=== PATIENT | female | born 1970 | race Caucasian/White ===

== ENCOUNTER 2021-01-05 15:33 | Outpatient (CLI) | payer OTHER, SELFPAY ==
--- NOTE | ~2021-01-05 | MM_ITS ---
EXAMINATION: MM screening emmanuel BI w alana HISTORY: Screening mammogram TECHNIQUE: Craniocaudal and mediolateral oblique 3-D tomosynthesis images were obtained and synthetic 2-D images were generated. Bilateral rotated lateral cc views. CAD analysis was submitted and interp reted. COMPARISON: 11/23/2018, 06/23/2017, 08/06/2011 bilateral digital screening mammogram examinations BREAST PARENCHYMAL COMPOSITION: The breasts are heterogeneously dense, which may obscure small masses . FINDINGS: There is no evidence of suspicious mass, calcification, or architectural distortion to sugg est malignancy in either breast. There has been no suspicious interval change. IMPRESSION: 1. No mammographic evidence of malignancy. 2. Recommend routine screening mammography in one year. BI-RADS Category 1: Negative Reviewed, dictated and finalized at location A.
== END 2021-01-05 15:34 | disposition home or self-care (01) ==
LOC: ANHIMG 15:38
PROVIDERS: PCP Internal Medicine; Visit Provider Registered Nurse
DX: Z12.31 Encounter for screening mammogram for malignant neoplasm of breast (principal)
CPT/HCPCS: 77063; 77067

== ENCOUNTER 2024-06-14 08:23 | Outpatient (CLI) | payer OTHER, SELFPAY ==
--- NOTE | ~2024-06-14 | MM_ITS ---
EXAMINATION: MM screening emmanuel BI w alana HISTORY: Screening mammogram TECHNIQUE: Craniocaudal and mediolateral oblique 3-D tomosynthesis images were obtained and synthetic 2-D images were generated. CAD analysis was submitted and interpreted. COMPARISON: 01/05/2021, 11/23/2018 BREAST PARENCHYMAL COMPOSITION:Dense: The breasts are heterogeneously dense, which may obscure small masses. FINDINGS: No suspicious mass, calcification, or architectural distortion are identified in either lashonda ast to suggest malignancy. There has been no suspicious interval change. IMPRESSION: No mammographic evidence of malignancy. Recommend routine screening mammography in one year. BI-RADS Category 1: Negative Reviewed, dictated and finalized at location .
== END 2024-06-14 08:24 | disposition home or self-care (01) ==
PROVIDERS: PCP Internal Medicine; Visit Provider Internal Medicine
DX: Z12.31 Encounter for screening mammogram for malignant neoplasm of breast (principal)
CPT/HCPCS: 77063; 77067

== ENCOUNTER 2024-11-24 17:37 | Emergency (ER) | payer OTHER, SELFPAY ==
--- NOTE | ~2024-11-24 | XR_ITS ---
EXAMINATION: XR wrist RT min 3V DATE: 11/24/2024 18:03 INDICATION: Right wrist pain. Fall. TECHNIQUE: 4 views of right wrist were obtained. COMPARISON: None. FINDINGS: Alignment is normal. No fracture. There is mild osteoarthritis of triscaphe joint and first carpometacarpal joint. IMPRESSION: 1. Mild polyarticular osteoarthritis. Reviewed, dictated and finalized at location A. [employer]
[2024-11-24 17:52] VITALS: BP 148/103; PULSE 105; RESP 16; TEMP 37.2; O2SAT 99
--- NOTE | 2024-11-24 18:07 | ED_ITS ---
HPI - Extremity Injury (Lower) General Chief Complaint: Extremity Injury, Lower Stated Complaint: right wrist/hand injury Time Seen by Provider: 11/24/24 18:07 Source: patient Mode of arrival: ambulatory Limitations: no limitations History of Present Illness HPI Narrative: 54-year-old female presents with complaint of pain and swelling to right wrist. Prior to arrival patient was walking her dog and fell. Landing on right wrist. Pain with movement. No deformity. CMS intact. All systems reviewed and negative except as noted above. Related Data Allergies Allergy/AdvReac Type Severity Reaction Status Date / Time No Known Allergies Allergy Unverified 05/28/17 09:31 Review of Systems Review of Systems: CONSTITUTIONAL: Denies fever, chills, or sweats. EYES: Denies visual changes, redness, or discharge. ENT: Denies rhinorrhea, congestion, sore throat, or otalgia. CARDIOVASCULAR: Denies chest pain, palpitations, or edema. RESPIRATORY: Denies cough or dyspnea. GASTROINTESTINAL: Denies abdominal pain, nausea, vomiting, or diarrhea. GENITOURINARY: Denies dysuria or hematuria. SKIN: Denies rash or itching. MUSCULOSKELETAL: Denies back pain, joint pain, or myalgia. Reports right wrist pain and swelling. NEUROLOGIC: Denies headache, numbness, or weakness. PSYCHIATRIC: Denies anxiety or depression. All other systems reviewed are negative, except as documented in HPI. [facility] Family History Family History (Updated 05/08/18 @ 09:53 by DOCTOR UNKNOWN) Other Family history of coronary artery disease Social History Social History Smoking status: Never smoker Alcohol intake: never Comments At time of signature, agree with nursing past medical, surgical, social and family history. There is no relevant family history pertinent to the presenting complaint. Exam Narrative: GENERAL: This is a well-nourished, well-developed patient, in no apparent distress. HEAD: normocephalic, atraumatic. EYES: PERRL. Sclera clear/white. Vision is grossly intact. EARS: External ears normal NOSE: External nose normal NECK: Neck supple, non-tender without lymphadenopathy, masses or thyromegaly. CARDIOVASCULAR: Regular rate and rhythm without murmurs, gallops, or rubs. RESPIRATORY: Clear to auscultation. Breath sounds equal bilaterally. No wheezes, rales, or rhonchi. SKIN: warm, Dry, intact with no suspicious lesions or rash, good texture and turgor. NEURO: awake, alert, and oriented to person, place and time. There were no obvious focal neurologic abnormalities. EXTREMITIES: tenderness to distal aspect ulnar and radius with swelling to distal radius. radial pulse intact. decreased ROM due to pain . no deformity Course Course Level of Care: Express Care Visit Vital Signs Vital signs: Vital Signs Temperature 37.2 C 11/24/24 17:52 Pulse Rate 105 H 11/24/24 17:52 Respiratory Rate 16 11/24/24 17:52 Blood Pressure 148/103 H 11/24/24 17:52 Pulse Oximetry 99 11/24/24 17:52 Oxygen Delivery Room Air 11/24/24 17:52 Temperature 37.2 C 11/24/24 17:52 Pulse Rate 105 H 11/24/24 17:52 Respiratory Rate 16 11/24/24 17:52 Blood Pressure 148/103 H 11/24/24 17:52 Pulse Oximetry 99 11/24/24 17:52 Oxygen Delivery Room Air 11/24/24 17:52 Reviewed MDM - Extremity Injury (Lower) MDM Narrative Medical decision making narrative: x-ray right breast negative for fracture. Placed in David wrap for wrist sprain. Recommend follow-up primary care physician if pain not improving. Please be advised this is a medical document. It is intended for [id number] communication. It is written in medical language and may contain unfamiliar abbreviations or verbiage. Medical documents are intended to carry relevant information, facts as evident, and the clinical opinion of the practitioner at t he time of the encounter. This report may have been done utilizing a voice recognition system. Attempts have been made to correct errors. However, there may be uncorrected grammatical, spelling, and recognition errors present. The file time of this note does not necessarily represent the time of service. Imaging Data My impression: agree with radiologist Radiologist's impression: EXAMINATION: XR wrist RT min 3V DATE: 11/24/2024 18:03 INDICATION: Right wrist pain. Fall. TECHNIQUE: 4 views of right wrist were obtained. COMPARISON: None. FINDINGS: Alignment is normal. No fracture. There is mild osteoarthritis of triscaphe joint and first carpometacarpal joint. IMPRESSION: 1. Mild polyarticular osteoarthritis. Discharge Plan Discharge Clinical Impression: Right wrist sprain Qualifiers: Encounter type: initial encounter Qualified Code(s): S63.501A - Unspecified sprain of right wrist, initial encounter Patient Disposition: Home, Self-Care Condition: Stable Instructions: Wrist Sprain (ED) Additional Instructions: The x-ray of your right wrist was negative for fracture. Take tylenol every 6 to 8 hours as needed for pain. Elevate when at rest. Apply ice as needed for pain. Follow up with your doctor if pain and swelling not improving. Patient Language: Irish Follow-up/Referrals: Darlyn,Josh Priest MD [Primary Care Provider] - Time of Disposition: 18:21
== END 2024-11-24 18:25 | disposition home or self-care (01) ==
PROVIDERS: Emergency Provider Nurse Practitioner Family; PCP Internal Medicine
DX: S63.501A Unspecified sprain of right wrist, initial encounter (principal); W19.XXXA Unspecified fall, initial encounter; Y93.K1 Activity, walking an animal; I10 Essential (primary) hypertension
CPT/HCPCS: 73110; 99203; G0463

== ENCOUNTER 2024-12-30 14:55 | Emergency (ER) | payer OTHER, SELFPAY ==
--- NOTE | ~2024-12-30 | XR_ITS ---
EXAM: XR foot LT min 3V DATE: 12/30/2024 15:10 HISTORY: pain in the MTP- 1,2,3 fall . COMPARISON: 02/13/2013. FINDINGS: Normal mineralization. Mildly distracted and rotated fracture at the medial corner of the proximal left second phalanx. No lytic or blastic lesion. Mild degenerative change at the first MTP j oint. Achilles enthesopathy.. No erosion or periosteal change. Soft tissue swelling over the fracture site. IMPRESSION: Mildly distracted and rotated fracture of the medial corner of the proximal left second p halanx. Reviewed, dictated and finalized at location K. IMPRESSION: Mildly distracted and rotated fracture of the medial corner of the proximal left second phalanx.
[2024-12-30 15:05] VITALS: BP 149/104; PULSE 94; RESP 20; TEMP 36.3; O2SAT 100
--- NOTE | 2024-12-30 15:05 | ED.LOWEXIN ---
HPI - Extremity Injury (Lower) General Chief Complaint: Extremity Injury, Lower Stated Complaint: Left Foot Pain Time Seen by Provider: 12/30/24 15:10 Source: patient, RN notes reviewed and old records reviewed Mode of arrival: ambulatory Limitations: no limitations History of Present Illness HPI Narrative: [age] year [facility] foot pain. Pain is in the 1st 2nd and 3rd MTP joints. Worse in the 2nd. Mild swelling noted. Patient reports that she did have bruising which has greatly improved. Original injury was the 14 of December. Has been taking Advil and icing. Related Data Home Medications ?Medication ?Instructions ?Recorded ?Confirmed ?Last Taken ?Type atomoxetine 80 mg capsule mg PO 12/30/24 Unknown History hydrochlorothiazide 25 mg tablet mg 12/30/24 Unknown History venlafaxine 75 mg capsule,extended mg PO 12/30/24 Unknown History release 24 hr Allergies Allergy/AdvReac Type Severity Reaction Status Date / Time No Known Allergies Allergy Verified 12/30/24 15:01 Review of Systems Review of Systems: All systems reviewed & are unremarkable except as noted in HPI and below Constitutional: Constitutional: Reports no additional constitutional complaints ENT: Reports system reviewed and no additional complaints, except as documented Cardiovascular: Cardiovascular: Reports no additional cardiovascular complaints, Denies chest pain and Denies dyspnea Respiratory: Respiratory: Reports no additional respiratory complaints, Denies chest congestion, Denies cough and Denies dyspnea Musculoskeletal: Musculoskeletal: Reports as per HPI Integumentary/Breasts: Skin/Breast: Reports system reviewed and no additional complaints, except as docu [facility] Family History Family History Other Family history of coronary artery disease Social History Social History Smoking status: Never smoker Alcohol intake: never Comments At the time of my signature, I reviewed and agree with the nursing past medical, surgical, social, and family history. There is no relevant family history pertinent to the patient complaint. Exam Const: General: cooperative, healthy appearing, comfortable, no acute distress, well developed, alert and well nourished Nutritional Appearance: well nourished Orientation/consciousness: patient oriented x3 Limitations: no limitations HENMT: Head: normal to inspection Eyes: General: appearance normal, both eyes and all related structures Alignment and Position: alignment normal Neck: Neck: normal visual inspection, full ROM, no lymphadenopathy and no meningeal signs Chest: Chest palpation & inspection: normal inspection of the chest Resp: Effort & Inspection: normal respiratory effort and able to speak in complete sentences Cardio: Rate: regular rate Skin: General skin exam: normal color and no rashes or lesions noted Neuro: General: patient oriented x3, gait normal, moves all extremities and no meningeal signs Cognition (Neuro): normal cognition Speech: normal speech Gait exam (Neuro): Normal gait present Extrem: General: normal to inspection, full ROM, capillary refill normal and normal gait Left lower extremity: foot Details: tenderness Location: of the great toe Location: at the MTP joint and of another digit Location: the 2nd digit, the 3rd digit and at the MTP joint, abnormal ROM of toe Details: pain with active ROM, ecchymosis ( old at dorsal, MTP 2/3) and vascular exam Details: dorsalis pedis pulse present; no lacerations and no puncture wound Psych: Appearance: grossly normal and well kempt Mental Status: mental status grossly normal Speech and movement: Normal speech and movement present and Clear speech present Affect: normal affect Attitude: cooperative Course Course Level of Care: Express Care Visit Vital Signs Vital signs: Vital Signs Temperature 97.4 F L 12/30/24 15:05 Pulse Rate 94 12/30/24 15:05 Respiratory Rate 20 12/30/24 15:05 Blood Pressure 149/104 H 12/30/24 15:05 Pulse Oximetry 100 12/30/24 15:05 Oxygen Delivery Room Air 12/30/24 15:05 Temperature 97.4 F L 12/30/24 15:05 Pulse Rate 94 12/30/24 15:05 Respiratory Rate 20 12/30/24 15:05 Blood Pressure 149/104 H 12/30/24 15:05 Pulse Oximetry 100 12/30/24 15:05 Oxygen Delivery Room Air 12/30/24 15:05 Reviewed MDM - Extremity Injury (Lower) MDM Narrative Medical decision making narrative: patient sitting comfortably in exam. Nontoxic, vitals stable. Patient in no acute distress. Patient presents with foot injury over 2 weeks ago. Not getting any better, x-ray shows fracture of the 2nd phalanx left foot. Patient placed in a postop shoe, referred to Podiatry patient appropriate for outpatient treatment with follow-up. Discharge instructions reviewed with patient, as well as provided in writing per nursing staff. The instructions also include specific and strict return/GO TO THE ER as well as f/u information. All questions have been answered, and the patient deny any further questions with discharge and discharge plan. Some parts of this dictation were generated by voice recognition software and may contain typographical and/or grammatical inaccuracies. Differential Diagnosis Differential diagnosis: Likely ankle sprain and strain and fracture of toe Imaging Data Radiologist's impression: EXAM: XR foot LT min 3V DATE: 12/30/2024 15:10 HISTORY: pain in the MTP- 1,2,3 fall . COMPARISON: 02/13/2013. FINDINGS: Normal mineralization. Mildly distracted and rotated fracture at the medial corner of the proximal left second phalanx. No lytic or blastic lesion. Mild degenerative change at the first MTP joint. Achilles enthesopathy.. No erosion or periosteal change. Soft tissue swelling over the fracture site. IMPRESSION: Mildly distracted and rotated fracture of the medial corner of the proximal left second phalanx. Critical Care Time Critical Care Time Critical Care Time: No Discharge Plan Discharge Clinical Impression: Closed fracture of second toe of left foot Patient Disposition: Home, Self-Care Condition: Stable Instructions: Antibiotic Form, Toe Fracture (ED) Additional Instructions: rest, ice and elevate every 2-3 hours for 15-20 minutes while awake. Call make a follow-up appointment with Podiatry Wear good supportive shoes/ postop shoe at all times. Ice should be applied to help reduce swelling. It can be used for 20 to 30 minutes, every 2-3 hours while awake. Do not apply ice directly to your skin. You can alternate ibuprofen 600mg and Tylenol 650mg every 4 hours as needed for pain Please schedule a follow-up visit with your personal physician For new or worsening symptoms go directly to the emergency room Patient Language: Norwegian Prescriptions: No Action venlafaxine 75 mg capsule,extended release 24hr PO hydrochlorothiazide 25 mg tablet atomoxetine 80 mg capsule PO Follow-up/Referrals: Cade Cochran Jr., DPM [Physician] - Darlyn,Josh Priest MD [Primary Care Provider] - Lauri Greene DPM [Physician] - Time of Disposition: 16:05
== END 2024-12-30 16:08 | disposition home or self-care (01) ==
PROVIDERS: Emergency Provider Nurse Practitioner; PCP Internal Medicine
DX: S92.512A Displaced fracture of proximal phalanx of left lesser toe(s), initial encounter for closed fracture (principal); X58.XXXA Exposure to other specified factors, initial encounter; I10 Essential (primary) hypertension
CPT/HCPCS: 73630; 99214; G0463